=== PATIENT | female | born 1965 | race Two or more races ===

== ENCOUNTER 2023-05-18 11:30 | Inpatient (IN) | payer OTHER ==
[~2023-05-18] VITALS: Ht 152.4 cm; Wt 84.4 kg
[~2023-05-18 11:30] MED LIST: SYNTHROID100 MCG PO
[2023-05-24] MEDS ORDERED: CEFOXITIN SODIUM 2,000 MG VIAL IV ONE ×2 (06:57→09:30)
[2023-05-24] MEDS ORDERED: POVIDONE-IODINE 118 ML BOTT TOP ONE ×2 (07:23→09:30)
[2023-05-24] MEDS ORDERED: LIDOCAINE HCL/EPINEPHRINE 10MG/ML 1% 50ML IJ ONE (07:35)
[2023-05-24] MEDS ORDERED: BUPIVACAINE HCL/PF 0.5% 30ML ML ONE (07:35)
[2023-05-24] MEDS ORDERED: HYDROCHLOROTHIA25 MG (08:23)
[2023-05-24] MEDS ORDERED: THROMBIN,HU/FIBRINOGEN/CALCIUM 10 ML SYRINGE TOP ONE ×2 (08:35→09:30)
[2023-05-24] MEDS ORDERED: MORPHINE SULFATE 4 MG/ML VIAL IV PRN (09:45)
[2023-05-24] MEDS ORDERED: ONDANSETRON HCL 2 MG/ML VIAL IV PRN (09:45)
[2023-05-24] MEDS ORDERED: RINGERS SOLUTION,LACTATED 1,000 ML IV SCH (09:45)
[2023-05-24] MEDS ORDERED: SUGAMMADEX SODIUM 200 MG/2 ML VIAL IV ONE ×2 (10:25→10:30)
[2023-05-24] MEDS ORDERED: ONDANSETRON HCL 2 MG/ML VIAL ONE (11:42)
[2023-05-24] MEDS ORDERED: SIMETHICONE 125 MG CAPSULE PO SCH (13:00)
[2023-05-24 14:38] LABS: HEMATOCRIT 36.6 % (36.0-45.00); HEMOGLOBIN 11.5 g/dL (12.0-15.00); MEAN CORPUSCULAR HEMOGLOBIN 21.1 pg (27.00-32.0); MEAN CORPUSCULAR HGB CONC 31.3 g/dl (32.0-36.0); PLATELET COUNT 444 K/uL (150-450); RED BLOOD COUNT 5.44 M/uL (4.00-6.00)
[2023-05-24 14:44] LABS: CALCIUM 8.6 mg/dL (8.5-10.1); CREATININE SERUM 0.87 mg/dL (0.55-1.02); GFR 66.64; POTASSIUM 3.62 mEq/L (3.5-5.1)
[2023-05-24 14:59] LABS: MEAN CELL VOLUME 67.4 fL (80.00-100.00); RED CELL DISTRIBUTION WIDTH 21.2 % (11.5-14.5)
[2023-05-24] MEDS ORDERED: CEFOXITIN SODIUM 2,000 MG VIAL IV SCH (17:00)
[2023-05-24] MEDS ORDERED: KETOROLAC TROMETHAMINE 30 MG VIAL IV SCH (17:00)
[2023-05-24] MEDS ORDERED: FAMOTIDINE/PF 20 MG/2 ML VIAL IV SCH (21:00)
[2023-05-24] MEDS ORDERED: DOCUSATE SODIUM 100MG CAP PO SCH (21:00)
[2023-05-25] MEDS ORDERED: LEVOTHYROXINE SODIUM 100 MCG TABLET PO SCH (06:00)
[2023-05-25 07:21] LABS: CALCIUM 7.6 mg/dL (8.5-10.1); CREATININE SERUM 0.94 mg/dL (0.55-1.02); GFR 60.95; POTASSIUM 4.25 mEq/L (3.5-5.1)
[2023-05-25 07:32] LABS: HEMATOCRIT 32.1 % (36.0-45.00); HEMOGLOBIN 10.3 g/dL (12.0-15.00); MEAN CORPUSCULAR HEMOGLOBIN 21.5 pg (27.00-32.0); MEAN CORPUSCULAR HGB CONC 32.1 g/dl (32.0-36.0); PLATELET COUNT 397 K/uL (150-450); RED BLOOD COUNT 4.78 M/uL (4.00-6.00); RED CELL DISTRIBUTION WIDTH 20.7 % (11.5-14.5)
[2023-05-25 07:43] LABS: MEAN CELL VOLUME 67.2 fL (80.00-100.00)
[2023-05-25] MEDS ORDERED: OxyCODONE HCL/APAP UD (PERCOCET) PO PRN (08:30)
[2023-05-25] MEDS ORDERED: KETOROLAC TROMETHAMINE 30 MG VIAL IV SCH (08:41)
[2023-05-25] MEDS ORDERED: IBUprofen 800 MG TABLET PO SCH (09:00)
[2023-05-25] MEDS ORDERED: ENOXAPARIN SODIUM 40 MG/0.4 ML SYRINGE SUBCUTANEO SCH (09:00)
[2023-05-26 07:19] LABS: HEMATOCRIT 30.5 % (36.0-45.00); MEAN CORPUSCULAR HEMOGLOBIN 21.2 pg (27.00-32.0); PLATELET COUNT 375 K/uL (150-450); RED BLOOD COUNT 4.61 M/uL (4.00-6.00); RED CELL DISTRIBUTION WIDTH 21.1 % (11.5-14.5)
[2023-05-26 07:34] LABS: HEMOGLOBIN 9.8 g/dL (12.0-15.00); MEAN CELL VOLUME 66.3 fL (80.00-100.00)
[2023-05-26 07:57] LABS: CALCIUM 8.4 mg/dL (8.5-10.1); CREATININE SERUM 0.72 mg/dL (0.55-1.02); GFR 82.91
[2023-05-26] MEDS ORDERED: IBUprofen 800 MG TABLET PO SCH (10:58)
== END 2023-05-27 12:17 | disposition home or self-care (01) | DRG 742 ==
LOC: O/R 05-24 05:25 → SURH 05-24 07:00 → SURG 05-24 12:17
PROVIDERS: Obstetrics & Gynecology; Surgery; ADMIT Obstetrics & Gynecology Gynecologic Oncology; ATTEND Obstetrics & Gynecology Gynecologic Oncology
PROC: 0UT20ZZ Resection of Bilateral Ovaries, Open Approach (ICD-10-PCS; 2023-05-24)
PROC: 0DNW0ZZ Release Peritoneum, Open Approach (ICD-10-PCS; 2023-05-24)
PROC: 0DNU0ZZ Release Omentum, Open Approach (ICD-10-PCS; 2023-05-24)
PROC: 07BC0ZZ Excision of Pelvis Lymphatic, Open Approach (ICD-10-PCS; 2023-05-24)
PROC: 0WQF0ZZ Repair Abdominal Wall, Open Approach (ICD-10-PCS; 2023-05-24)
PROC: 0UT90ZZ Resection of Uterus, Open Approach (ICD-10-PCS; principal; 2023-05-24 07:00)
PROC: 0UT70ZZ Resection of Bilateral Fallopian Tubes, Open Approach (ICD-10-PCS; 2023-05-24 07:00)
DX: D25.2 Subserosal leiomyoma of uterus (principal); K43.0 Incisional hernia with obstruction, without gangrene; D25.0 Submucous leiomyoma of uterus; N80.03 Adenomyosis of the uterus; N72 Inflammatory disease of cervix uteri; D27.1 Benign neoplasm of left ovary; D27.0 Benign neoplasm of right ovary; K43.2 Incisional hernia without obstruction or gangrene; Z20.822 Contact with and (suspected) exposure to COVID-19; I97.3 Postprocedural hypertension

== ENCOUNTER 2023-05-28 18:03 | Inpatient (IN) | payer OTHER ==
[~2023-05-28] VITALS: Ht 152.4 cm; Wt 84.4 kg
[~2023-05-28 18:03] MED LIST changes: +HYDROCHLOROTHIA25 MG
[2023-05-28] MEDS ORDERED: MEPERIDINE HCL/PF 50 MG/ML VIAL IM ONE (19:00)
[2023-05-28] MEDS ORDERED: PROMETHAZINE HCL 50 MG/ML AMPUL IM ONE (19:00)
[2023-05-28] MEDS ORDERED: 0.9 % SODIUM CHLORIDE 1,000 ML IV ONE (19:00)
[2023-05-28 19:40] LABS: URINE APPEARANCE Clear; URINE BILIRRUBIN Negative (NEGATIVE); URINE BLOOD Negative; URINE COLOR Yellow; URINE GLUCOSE Negative (NEGATIVE); URINE LEUKOCYTE Negative; URINE NITRATE Negative; URINE PROTEIN Negative (NEGATIVE)
[2023-05-28 19:44] LABS: URINE BACTERIA 6.2 uL (0.0-1933); URINE EPITHELIAL CELLS 6.7 uL (0.0-38.8)
[2023-05-28 19:47] LABS: URINE WBC 1.5 uL (0.0-23.2)
[2023-05-28 20:05] LABS: HEMATOCRIT 34.8 % (36.0-45.00); HEMOGLOBIN 11.3 g/dL (12.0-15.00); MEAN CELL VOLUME 66.6 fL (80.00-100.00); MEAN CORPUSCULAR HEMOGLOBIN 21.6 pg (27.00-32.0); MEAN CORPUSCULAR HGB CONC 32.5 g/dl (32.0-36.0); PLATELET COUNT 511 K/uL (150-450); RED BLOOD COUNT 5.23 M/uL (4.00-6.00)
[2023-05-28 20:15] LABS: INR 1.07; PARTIAL THROMBOPLASTIN TIME 27.1 SECONDS (22.0-34.0); PROTHROMBIN TIME 11.2 SECONDS (9.0-11.5)
[2023-05-28 20:19] LABS: ALBUMIN 3.2 gm/dL (3.4-5.0); BILIRUBIN TOTAL 0.67 mg/dL (0.3-1.2); CALCIUM 9.5 mg/dL (8.5-10.1); CREATININE SERUM 0.68 mg/dL (0.55-1.02); GFR 88.56; GLOBULINA 4.5 G/DL (2.4-3.5); POTASSIUM 3.23 mEq/L (3.5-5.1); TOTAL PROTEIN 7.7 gm/dL (6.4-8.2)
[2023-05-28] MEDS ORDERED: PIPERACILLIN/TAZOBACTAM SODIUM 3.375 GM VIAL IV ONE (21:45)
[2023-05-28] MEDS ORDERED: ACETAMINOPHEN 500 MG GEL..CAP PO PRN (22:15)
[2023-05-28] MEDS ORDERED: 0.9 % SODIUM CHLORIDE 1,000 ML IV SCH (22:15)
[2023-05-28] MEDS ORDERED: MEPERIDINE HCL/PF 25 MG/ML VIAL IM PRN (22:15)
[2023-05-28] MEDS ORDERED: ONDANSETRON HCL 4 MG in 0.9 % SODIUM CHLORIDE 50 ML IV PRN (22:15)
[2023-05-28] MEDS ORDERED: ENALAPRILAT DIHYDRATE 1.25 MG/ML VIAL IV PRN (22:15)
[2023-05-29] MEDS ORDERED: PIPERACILLIN/TAZOBACTAM SODIUM 3.375 GM in DEXTROSE 5 % IN WATER 100 ML IV SCH
[2023-05-29] MEDS ORDERED: ENOXAPARIN SODIUM 40 MG/0.4 ML SYRINGE SUBCUTANEO SCH ×2 (05:51→09:00)
[2023-05-29] MEDS ORDERED: LEVOTHYROXINE SODIUM 100 MCG TABLET PO SCH (06:00)
[2023-05-29] MEDS ORDERED: POTASSIUM CHLORIDE IN 0.9%NACL 40 MEQ/1,000 ML PIGGYBAG IV ONE (06:00)
[2023-05-29] MEDS ORDERED: KETOROLAC TROMETHAMINE 30 MG VIAL IV PRN (06:00)
[2023-05-29] MEDS ORDERED: POTASSIUM CHLORIDE IN WATER 40 MEQ/100 ML PIGGYBAG IV ONE (06:12)
[2023-05-29 07:22] LABS: MAGNESIUM 1.9 mg/dL (1.8-2.4); PHOSPHOROUS 3.9 mg/dL (2.5-4.9)
[2023-05-29] MEDS ORDERED: METOCLOPRAMIDE HCL 5 MG/ML VIAL IV SCH (09:00)
[2023-05-29] MEDS ORDERED: IOHEXOL 350 mgI/ML 50ML BOTT PO ONE (20:30)
[2023-05-29] MEDS ORDERED: DIATRIZOATE MEGLUMINE, SODIUM 30 ML BOTTLE PO ONE ×2 (20:47→21:00)
[2023-05-29] MEDS ORDERED: FAMOTIDINE/PF 20 MG/2 ML VIAL IV SCH (21:00)
[2023-05-30 07:28] LABS: CALCIUM 8.2 mg/dL (8.5-10.1); CREATININE SERUM 0.73 mg/dL (0.55-1.02); GFR 81.6; PHOSPHOROUS 2.9 mg/dL (2.5-4.9); POTASSIUM 3.43 mEq/L (3.5-5.1)
[2023-05-30] MEDS ORDERED: ENOXAPARIN SODIUM 40 MG/0.4 ML SYRINGE SUBCUTANEO SCH ×2 (09:00)
[2023-05-31] MEDS ORDERED: POLYETHYLENE GLYCOL 3350 17 GM BLIST.PACK PO SCH (17:00)
== END 2023-06-01 10:37 | disposition home or self-care (01) | DRG 390 ==
LOC: ER 18:03 → SURG 22:16 → O/R 05-31 14:54 → SURG 05-31 14:57
PROVIDERS: General Practice; Surgery; ADMIT Obstetrics & Gynecology Gynecologic Oncology; ATTEND Obstetrics & Gynecology Gynecologic Oncology
PROC: BW21ZZZ Computerized Tomography (CT Scan) of Abdomen and Pelvis (ICD-10-PCS; principal; 2023-05-28)
PROC: 0DH67UZ Insertion of Feeding Device into Stomach, Via Natural or Artificial Opening (ICD-10-PCS; 2023-05-28)
PROC: 3E0G76Z Introduction of Nutritional Substance into Upper GI, Via Natural or Artificial Opening (ICD-10-PCS; 2023-05-28)
PROC: BW21Y0Z Computerized Tomography (CT Scan) of Abdomen and Pelvis using Other Contrast, Unenhanced and Enhanced (ICD-10-PCS; 2023-05-29)
DX: K56.51 Intestinal adhesions [bands], with partial obstruction (principal); Z20.822 Contact with and (suspected) exposure to COVID-19

== ENCOUNTER 2024-01-15 13:42 | Emergency (ER) | payer OTHER ==
[~2024-01-15] VITALS: Ht 152.4 cm; Wt 80.7 kg
[2024-01-15] MEDS ORDERED: TRAMADOL HCL 50 MG TABLET PO STA (15:33)
== END 2024-01-15 18:32 | disposition home or self-care (01) ==
LOC: ER 13:44
DX: M17.11 Unilateral primary osteoarthritis, right knee (principal); Z88.6 Allergy status to analgesic agent; Z91.013 Allergy to seafood

== ENCOUNTER 2024-09-15 09:33 | Emergency (ER) | payer OTHER ==
[~2024-09-15] VITALS: Ht 152.4 cm; Wt 72.6 kg
[2024-09-15] MEDS ORDERED: MIRALAX510 GM (09:52)
[2024-09-15] MEDS ORDERED: FAMOTIDINE/PF 20 MG in 0.9 % SODIUM CHLORIDE 8 ML IV PUSH STA (09:59)
[2024-09-15] MEDS ORDERED: ONDANSETRON HCL 2 MG/ML VIAL IV STA (09:59)
[2024-09-15] MEDS ORDERED: 0.9 % SODIUM CHLORIDE 1,000 ML IV SCH (10:00)
[2024-09-15] MEDS ORDERED: MORPHINE SULFATE 4 MG/ML VIAL IV ONE (10:00)
[2024-09-15] MEDS ORDERED: ONDANSETRON HCL 2 MG/ML VIAL ONE (10:03)
[2024-09-15] MEDS ORDERED: FAMOTIDINE/PF 20 MG/2 ML VIAL ONE (10:04)
[2024-09-15 11:10] LABS: PH,URINE 5.5 (5.0-8.0); URINE APPEARANCE Clear; URINE BILIRRUBIN Negative (NEGATIVE); URINE BLOOD Negative; URINE COLOR Yellow; URINE GLUCOSE Negative (NEGATIVE); URINE KETONE Negative (NEGATIVE); URINE LEUKOCYTE Trace; URINE NITRATE Negative; URINE PROTEIN Negative (NEGATIVE)
[2024-09-15 11:13] LABS: CALCIUM 9.7 mg/dL (8.5-10.1); CREATININE SERUM 0.65 mg/dL (0.55-1.02); GFR 92.66; POTASSIUM 4.13 mEq/L (3.5-5.1)
[2024-09-15 11:14] LABS: URINE BACTERIA 9551.5 uL (0.0-1933); URINE EPITHELIAL CELLS 21.2 uL (0.0-38.8); URINE RBC 6.3 uL (0.0-20.8); URINE WBC 59.8 uL (0.0-23.2)
[2024-09-15 11:19] LABS: URINE CAST 0.29 uL (0.0-1.40)
[2024-09-15] MEDS ORDERED: DIPHENHYDRAMINE HCL 50 MG/ML VIAL 1ML ONE (13:26)
[2024-09-15] MEDS ORDERED: METHYLPREDNISOLONE SOD SUCC 125 MG VIAL ONE (13:27)
[2024-09-15] MEDS ORDERED: DIPHENHYDRAMINE HCL 50 MG/ML VIAL 1ML IM ONE (13:30)
[2024-09-15] MEDS ORDERED: METHYLPREDNISOLONE SOD SUCC 125 MG VIAL IV ONE (13:30)
[2024-09-15 14:07] LABS: RED BLOOD COUNT 5.23 M/uL (3.93-5.22)
[2024-09-15 14:08] LABS: BASO % 0.9 % (0.1-1.2); EOS % 1.6 % (0.7-7.0); HEMATOCRIT 42.5 % (34.1-44.9); HEMOGLOBIN 14.1 g/dL (11.2-15.7); LYMPH % 30.7 % (19.3-53.1); NEUT % 59.7 % (34.0-71.1); PLATELET COUNT 426 K/uL (163-369); RED CELL DISTRIBUTION WIDTH 13.8 % (11.6-14.4)
[2024-09-15 14:29] LABS: EOS # 0.12 (0.04-0.54); LYMPH # 2.27 (1.18-3.74); MONO # 0.52 (0.24-0.82)
[2024-09-15] MEDS ORDERED: LEVSIN/SL0.125 MG SL (16:59)
[2024-09-15] MEDS ORDERED: PEPCID AC20 MG PO (16:59)
[2024-09-15] MEDS ORDERED: BACTRIM DS TAB1 EACH PO (16:59)
== END 2024-09-15 17:24 | disposition home or self-care (01) ==
LOC: ER 09:33
PROVIDERS: Emergency Medicine
DX: N39.0 Urinary tract infection, site not specified (principal); R10.9 Unspecified abdominal pain; E03.8 Other specified hypothyroidism; Z88.6 Allergy status to analgesic agent; Z91.013 Allergy to seafood
CPT/HCPCS: 36415; 74177; Q9965